=== PATIENT | male | born 1965 | race Caucasian/White ===

== ENCOUNTER → 2018-01-20 16:39 | Outpatient (CLI) | payer BC, SELFPAY ==
--- NOTE | 2018-01-20 16:45 | XR_ITS ---
EXAM: XR lumbar spine min 4V HISTORY: Low back pain ITS.REASON: SCIATICA OF LEFT SIDE ORDERING PHYSICIAN: Renzo Monteiro MD PATIENT AGE: 52 years COMPARISON: 12/12/2009 FINDINGS: Normal alignment. No fracture or dislocation. No lytic or blastic change. There is mild degenerative disc disease at L4-5 and L5-S1 with small endplate osteophytes and decrease in the disc space. There are mild facet hypertrophic changes at L4-L5 and L5-S1. Osteophytes are also present on the right at L5-L3. IMPRESSION: Lumbar spondylosis with degenerative disc disease L4-L5 and L5-S1. This is slightly worse when compared to previous exam
== END ==
PROVIDERS: PCP Family Medicine; Visit Provider Family Medicine
DX: M54.32 Sciatica, left side (principal)
CPT/HCPCS: 72110

== ENCOUNTER 2018-03-04 16:30 | Outpatient (RCR) | payer OTHER, BC, SELFPAY | END 2018-03-04 16:31 | disposition home or self-care (01) | LOC: PT 16:30 | PROVIDERS: Family Provider Family Medicine; PCP Family Medicine; Visit Provider Orthopaedic Surgery | DX: M75.22 Bicipital tendinitis, left shoulder (principal) | CPT/HCPCS: 97010; 97014; 97016; 97033; 97035; 97110; 97140; G0283 ==

== ENCOUNTER 2018-03-04 17:00 | Outpatient (RCR) | payer BC, SELFPAY ==
--- NOTE | 2018-02-04 11:21 | HMH.PTOPEV ---
Rehab Outpatient Evaluation Rehab OP Evaluation Start: 02/01/18 17:21 Freq: Status: Active Protocol: Document 02/01/18 17:21 MYRAMICHEL (Rec: 02/01/18 18:10 [email or web address] [id number]) Electronically Signed By Teddy Amor, PT 02/01/18 17:21 Outpatient Therapy Subjective History Subjective History Mr. Ghotra is a 52 year old male who presents to outpatient PT with LB pain that shoots down his LLE to his foot beginning 6 months ago of insidious onset. Pt. reports X-ray that indciates DDD and arthritic changes in his lumbar region. PMH include costochondrolitis and R shoulder pain from a fall when running from a dog that is being treated by Naproxen. Pt. also reports HTN that is medicated. Pt. will benefit from skilled outpatient PT services on BLE strenghtneing/ stretching, core strengthening , modalities, and pain control interventions. Chief Complaint Pain Paresthesia Symptom Type Sharp Burning Tingling Shooting Symptoms Relieved By Rest/Positioning Prescription Meds Symptoms Aggravated By Standing Physical Activity Walking Prior Functional Limitations None Standing Current Functional Limitations Standing Recreation Activity Walking Symptom Description Activity Dependent Level of pain today (0-10) 0 Pain scale - at its best (0-10) 0 Pain scale - at its worst (0-10) 9 Lumbopelvic Eval Posture Lumbar Spine Posture Standing Position Flattened Assistive device Assistive Devices None / NA Gait Observation General Gait Pattern Observation No Deviations/Normal Palapation tenderness bilateral thoracic spinal tenderness No lumbar spinal tenderness Yes paraspinal tenderness Yes buttock tenderness No Lumbar/Sacral Palpation Findings Tenderness Lumbar/Sacral Palpation Overall Comment 2/4 +TTP L SI jt. Accessory Movement L-spine Vertebrae Accessory Movements Central P/A [place] that [place]
== END 2018-03-04 17:01 | disposition home or self-care (01) ==
LOC: PT 17:00
PROVIDERS: Family Provider Family Medicine; PCP Family Medicine; Visit Provider Family Medicine
DX: M51.36 Other intervertebral disc degeneration, lumbar region (principal); M19.90 Unspecified osteoarthritis, unspecified site
CPT/HCPCS: 97010; 97012; 97014; 97110; 97140; 97164; G0283

== ENCOUNTER → 2020-02-16 15:29 | Outpatient (CLI) | payer BC, SELFPAY ==
[2020-02-29 16:25] LABS: Covid-19 Nasal PCR Sendout Lex DETECTED
== END ==
PROVIDERS: Visit Provider Family Medicine
DX: R50.9 Fever, unspecified (principal); R05 Cough

== ENCOUNTER → 2020-03-12 11:24 | Outpatient (CLI) | payer BC, SELFPAY ==
[2020-03-14 08:57] LABS: Covid-19 Nasal PCR Sendout Lex NOT DETECTED
--- NOTE | 2020-03-14 11:25 | PC.NURSE ---
0900-pt and provider notified of negative COVID 19 results.
== END ==
PROVIDERS: Visit Provider Internal Medicine Adolescent Medicine
DX: Z03.818 Encounter for observation for suspected exposure to other biological agents ruled out (principal)

== ENCOUNTER → 2020-09-28 09:43 | Outpatient (CLI) | payer BC, SELFPAY ==
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
== END ==
PROVIDERS: PCP Family Medicine; Visit Provider Family Medicine
DX: S13.4XXD Sprain of ligaments of cervical spine, subsequent encounter (principal)
CPT/HCPCS: 72050

== ENCOUNTER 2020-12-26 16:00 | Outpatient (RCR) | payer OTHER, BC, SELFPAY ==
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
== END 2020-12-26 16:05 | disposition home or self-care (01) ==
LOC: PT 16:00
PROVIDERS: Visit Provider Family Medicine
DX: M54.2 Cervicalgia; M62.838 Other muscle spasm
CPT/HCPCS: 20560; 97010; 97012; 97014; 97110; 97140; 97163; 97164; G0283

== ENCOUNTER 2024-02-17 08:41 | Outpatient (CLI) | payer BC, SELFPAY ==
[2024-02-17 08:46] LABS: Astrovirus Not Detected (NotDetected); Campylobacter Not Detected (NotDetected); Cryptosporidium Not Detected (NotDetected); Cyclospora Cayetanesis Not Detected (NotDetected); Entamoeba histolytica Not Detected (NotDetected); Enteroaggregative E coli Not Detected (NotDetected); Enteropathogenic E coli Not Detected (NotDetected); Enterotoxigenic E coli Not Detected (NotDetected); Giardia lamblia Not Detected (NotDetected); Norovirus Not Detected (NotDetected); Plesimonas Shigalloides, PCR Not Detected (NotDetected); Rotavirus A Not Detected (NotDetected); Salmonella, PCR Not Detected (NotDetected); Sapovirus Not Detected (NotDetected); Shiga-like toxin E coli Not Detected (NotDetected); Shigella Enterovasive E coli Not Detected (NotDetected); Vibrio Cholerae Not Detected (NotDetected); Vibrio, PCR Not Detected (NotDetected); Yersinia Entercolitica, PCR Not Detected (NotDetected)
[2024-02-21 11:55] LABS: Clostridium Difficile A/B, PCR Detected (NotDetected)
[2024-02-21 11:56] LABS: Adenovirus F 40/41, stool Detected (NotDetected)
== END 2024-02-17 23:59 ==
PROVIDERS: PCP Family Medicine; Visit Provider Nurse Practitioner
DX: R19.5 Other fecal abnormalities (principal); D12.6 Benign neoplasm of colon, unspecified; A08.2 Adenoviral enteritis; A04.72 Enterocolitis due to Clostridium difficile, not specified as recurrent
CPT/HCPCS: 87507